=== PATIENT | male | born 1990 | race African-American/Black ===

== ENCOUNTER 2022-01-24 19:32 | Emergency (ER) | payer MEDICAID ==
[~2022-01-24] VITALS: Ht 172.7 cm; Wt 72.0 kg
[2022-01-24 19:47] VITALS: BP 156/78
[2022-01-24 20:11] LABS: BASOPHILS % 0.6 % (0.0-2.0); EOSINOPHILS % 2.9 % (0.0-5.0); HEMATOCRIT. 37.5 % (42.0-52.0); HEMOGLOBIN. 12.7 g/dL (14.0-18.0); MEAN CORPUSCULAR HEMOGLOBIN 34.3 pg (28.0-32.0); MEAN CORPUSCULAR VOLUME 101.1 fL (80.0-94.0); MEAN PLATELET VOLUME 5.9 fl (7.4-10.4); MONOCYTES % 10.7 % (2.0-8.0); NEUTROPHILS % 35.8 % (40.0-76.0); PLATELET 297 x1000/uL (130-400); RED BLOOD CELL COUNT 3.71 mill/uL (4.7-6.1); RED CELL DISTRIBUTION WIDTH 14.6 % (11.6-14.6)
[2022-01-24 20:21] LABS: CHLORIDE 105 mEq/L (98-107)
[2022-01-24 20:34] LABS: ETHANOL BLOOD 437 mg/dL
[2022-01-24] MEDS ORDERED: HALOPERIDOL LACTATE 5MG/ML VIAL IM ONE (20:45)
== END 2022-01-24 21:32 | disposition left against medical advice (07) ==
LOC: ER 19:32
DX: F10.10 Alcohol abuse, uncomplicated (principal)
CPT/HCPCS: 36415; 80053; 80320; 85025; 93005; 99284; G0480